=== PATIENT | male | born 1945 | race Caucasian/White ===

== ENCOUNTER 2021-09-03 14:28 | Inpatient (IN) | payer OTHER, MEDICARE ==
[~2021-09-03] VITALS: Ht 170.2 cm; Wt 70.3 kg
[2021-09-03 15:42] LABS: HEMOGLOBIN 15.8 gm/dl (14.0-17.5); RED BLOOD COUNT 5.31 M/UL (4.20-5.50); WHITE BLOOD COUNT 16.7 K/UL (4.5-11.0)
[2021-09-03 16:22] LABS: BUN/CREATININE RATIO 19 (0-10)
[2021-09-04 00:07] LABS: HEMOGLOBIN 14.6 gm/dl (14.0-17.5); RED BLOOD COUNT 4.86 M/UL (4.20-5.50); WHITE BLOOD COUNT 18.5 K/UL (4.5-11.0)
[2021-09-04 06:40] LABS: HEMOGLOBIN 14.5 gm/dl (14.0-17.5); RED BLOOD COUNT 4.87 M/UL (4.20-5.50); WHITE BLOOD COUNT 20.2 K/UL (4.5-11.0)
[2021-09-04] MEDS ORDERED: HYDROCHLOROTHIA25 MG PO (15:55)
[2021-09-04] MEDS ORDERED: DEPO-TESTO200 MG/1 M INJ (15:56)
[2021-09-04] MEDS ORDERED: GLIPIZIDE5 MG PO (15:58)
[2021-09-04] MEDS ORDERED: PRAZOSIN HCL5 MG PO (15:58)
[2021-09-04] MEDS ORDERED: FLUTICASONE-SA1 EAC4 INH (16:00)
[2021-09-04] MEDS ORDERED: ALBUTEROL2.5 MG/3 M NEB (16:01)
[2021-09-04] MEDS ORDERED: VITAMIN D350 MC3 PO (16:01)
[2021-09-04] MEDS ORDERED: LISINOPRIL40 MG PO (16:02)
[2021-09-04] MEDS ORDERED: LORATADINE10 MG PO (16:02)
[2021-09-04] MEDS ORDERED: MIRTAZAPINE30 MG PO (16:03)
[2021-09-04] MEDS ORDERED: METFORMIN HCL1000 MG PO (16:03)
[2021-09-04] MEDS ORDERED: EFFEXOR XR150 MG PO (16:04)
[2021-09-04] MEDS ORDERED: MOBIC15 MG PO (16:05)
[2021-09-04] MEDS ORDERED: SIMVASTATIN80 MG PO (16:06)
[2021-09-04] MEDS ORDERED: SINGULAIR10 MG PO (16:07)
[2021-09-04] MEDS ORDERED: PRAZOSIN HCL2 MG PO (16:07)
[2021-09-04] MEDS ORDERED: FLONASE ALLER15.8 ML (16:10)
[2021-09-05 03:53] LABS: HEMOGLOBIN 13.6 gm/dl (14.0-17.5); RED BLOOD COUNT 4.64 M/UL (4.20-5.50)
[2021-09-05 03:59] LABS: WHITE BLOOD COUNT 14.7 K/UL (4.5-11.0)
== END 2021-09-05 13:17 | disposition home or self-care (01) | DRG 683 ==
LOC: ER1 14:28 → CDU 23:41 → M/S 09-04 17:36
PROVIDERS: Family Medicine; Internal Medicine; Physician Assistant; ADMIT Internal Medicine
DX: N17.9 Acute kidney failure, unspecified (principal); K92.1 Melena; E87.2 Acidosis; Z20.822 Contact with and (suspected) exposure to COVID-19; D72.829 Elevated white blood cell count, unspecified; E86.0 Dehydration; I10 Essential (primary) hypertension; E11.65 Type 2 diabetes mellitus with hyperglycemia; E78.5 Hyperlipidemia, unspecified; E78.00 Pure hypercholesterolemia, unspecified; H53.8 Other visual disturbances; K42.9 Umbilical hernia without obstruction or gangrene; Z79.4 Long term (current) use of insulin; Z90.49 Acquired absence of other specified parts of digestive tract; Z82.49 Family history of ischemic heart disease and other diseases of the circulatory system
CPT/HCPCS: 36415; 71045; 80048; 80053; 81001; 82009; 82150; 82270; 82550; 82553; 82800; 82962; 83036; 83605; 83690; 83735; 84100; 84484; 85025; 86140; 93005; 96374; 96375; 96376; 99285; C9113; J0696; J1644; J2270; J2405; U0002